=== PATIENT | male | born 1980 | race Caucasian/White ===

== ENCOUNTER 2018-04-16 23:22 | Emergency (ER) | payer SELFPAY ==
[2018-04-16 23:31] VITALS: Ht 165.1 cm
[2018-04-17 01:07] VITALS: BP 142/95
== END 2018-04-17 01:07 | disposition home or self-care (01) ==
LOC: ED 23:22
DX: S20.211A Contusion of right front wall of thorax, initial encounter (principal); S80.811A Abrasion, right lower leg, initial encounter; V49.88XA Car occupant (driver) (passenger) injured in other specified transport accidents, initial encounter; Y93.I9 Activity, other involving external motion; Y92.413 State road as the place of occurrence of the external cause; Y99.8 Other external cause status
CPT/HCPCS: 90715